=== PATIENT | male | born 1995 | race African-American/Black ===

== ENCOUNTER 2021-11-13 14:29 | Emergency (ER) | payer MEDICAID ==
[~2021-11-13] VITALS: Ht 175.3 cm; Wt 75.0 kg
[2021-11-13 14:35] VITALS: BP 132/86
[2021-11-13] MEDS ORDERED: CEPH500T PO (23:09)
[2021-11-13] MEDS ORDERED: SULF1TAB48 MT (23:09)
[2021-11-13] MEDS ORDERED: IBUP-2029 PO (23:09)
== END 2021-11-13 17:23 | disposition left against medical advice (07) ==
LOC: ER 14:44
DX: Z53.21 Procedure and treatment not carried out due to patient leaving prior to being seen by health care provider (principal)

== ENCOUNTER 2021-11-13 18:40 | Emergency (ER) | payer MEDICAID ==
[~2021-11-13] VITALS: Ht 177.8 cm; Wt 69.0 kg
[2021-11-13] MEDS ORDERED: IBUPROFEN 600MG TABLET PO ONE (22:45)
[2021-11-13] MEDS ORDERED: BACITRACIN ZINC OINT UDPKT TOP ONE (22:45)
[2021-11-13] MEDS ORDERED: LIDOCAINE HCL/PF 1% 10 MG/ML 5ML VIAL INFIL ONE (22:45)
[2021-11-13 23:07] VITALS: BP 125/69
[2021-11-13] MEDS ORDERED: CEPH500T PO (23:09)
[2021-11-13] MEDS ORDERED: IBUP-2029 PO (23:09)
[2021-11-13] MEDS ORDERED: SULF1TAB48 MT (23:09)
== END 2021-11-13 23:34 | disposition home or self-care (01) ==
LOC: ER 18:40
DX: L03.011 Cellulitis of right finger (principal); Z91.018 Allergy to other foods
CPT/HCPCS: 10060; 99283; J3490